=== PATIENT | female | born 1980 | race Two or more races ===

== ENCOUNTER 2019-03-01 23:26 | Emergency (ER) | payer MEDICAID ==
[~2019-03-01] VITALS: Ht 162.6 cm; Wt 63.5 kg
[2019-03-01 23:38] VITALS: BP 125/88
--- NOTE | 2019-03-01 23:52 | NUR ---
PT CAME TO ER W/ SON C/O "NOT FEELING WELL". PT STATES THAT SHE HAS BEEN FEELING THIS WAY FOR 3 DAYS. CURRENTLY ON ANTIBIOTICS. NO FEVER. AAOX.4 NO SOB. BREATHING EVENLY AND UNLABORED.
--- NOTE | 2019-03-02 00:22 | NUR ---
FLU SWAB SAMPLE TAKEN AND SENT TO LAB
--- NOTE | 2019-03-02 00:48 | NUR ---
Patient discharged to home in stable condition. Written and verbal after care instructions given. Patient verbalizes understanding of instruction.
== END 2019-03-02 00:49 | disposition home or self-care (01) ==
LOC: ER 23:26
DX: J10.1 Influenza due to other identified influenza virus with other respiratory manifestations (principal); Z98.890 Other specified postprocedural states